=== PATIENT | male | born 1945 | race Caucasian/White ===

== ENCOUNTER → 2019-07-21 | Outpatient (CLI) | payer MEDICARE, OTHER ==
[2019-07-21 11:22] LABS: BUN/CREATININE RATIO 20; CARBON DIOXIDE 24 MMOL/L (21-32); CHLORIDE 103 MMOL/L (98-107); CREATININE SERUM 1.11 MG/DL (0.60-1.30); GFR ESTIMATED > 60; GLUCOSE 95 MG/DL (70-105); POTASSIUM 4.3 MMOL/L (3.6-5.0); SODIUM 139 MMOL/L (135-145)
[2019-07-21 11:23] LABS: ALANINE AMINOTRANSFERASE 19 U/L (0-55); ALBUMIN 4.3 GM/DL (3.2-4.5); ALKALINE PHOSPHATASE 111 U/L (40-136); TOTAL PROTEIN 6.7 GM/DL (6.4-8.2)
[2019-07-21 15:37] LABS: CHOLESTEROL 198 MG/DL (< 200); HDL CHOLESTEROL 79 MG/DL (40-60); TRIGLYCERIDES 58 MG/DL (<150); VLDL CHOLESTEROL 12 MG/DL (5-40)
== END ==
LOC: LAB FS 09:58
PROVIDERS: ATTEND Pediatrics
DX: Z00.00 Encounter for general adult medical examination without abnormal findings (principal); Z12.5 Encounter for screening for malignant neoplasm of prostate
CPT/HCPCS: 36415; 80053; 80061; 84153

== ENCOUNTER 2022-02-02 12:11 | Emergency (ER) | payer MEDICARE, OTHER ==
[~2022-02-02] VITALS: Ht 177.8 cm; Wt 65.8 kg
[2022-02-02 12:28] VITALS: BP 122/79
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
[2022-02-02] MEDS ORDERED: TETANUS,DIPTH,PERTUSS P/F (BOOSTRIX) 0.5 ML VIAL IM ONE (13:00)
== END 2022-02-02 13:05 | disposition home or self-care (01) ==
LOC: EDUNIT# 12:11 → ER FS 12:12
DX: T24.212A Burn of second degree of left thigh, initial encounter (principal); T23.232A Burn of second degree of multiple left fingers (nail), not including thumb, initial encounter; T31.0 Burns involving less than 10% of body surface; S70.02XA Contusion of left hip, initial encounter; S30.810A Abrasion of lower back and pelvis, initial encounter; S40.812A Abrasion of left upper arm, initial encounter; Z23 Encounter for immunization; W28.XXXA Contact with powered lawn mower, initial encounter; Y93.H2 Activity, gardening and landscaping
CPT/HCPCS: 90715; 99284

== ENCOUNTER 2022-10-30 16:29 | Emergency (ER) | payer MEDICARE, OTHER ==
[~2022-10-30] VITALS: Ht 177 cm; Wt 68.0 kg
[2022-10-30 16:52] LABS: BASOPHILS % (AUTO) 1 % (0-10); EOSINOPHILS # (AUTO) 0.4 10^3/uL (0.0-0.3); EOSINOPHILS % (AUTO) 6 % (0-10); HEMATOCRIT 41 % (40-54); LYMPHOCYTES # (AUTO) 1.8 10^3/uL (1.0-4.0); LYMPHOCYTES % (AUTO) 27 % (12-44); MEAN CORPUSCULAR HEMOGLOBIN 34 pg (25-34); MEAN CORPUSCULAR HGB CONC 35 g/dL (32-36); MEAN CORPUSCULAR VOLUME 98 fL (80-99); MEAN PLATELET VOLUME 9.5 fL (9.0-12.2); MONOCYTES # (AUTO) 0.5 10^3/uL (0.0-1.0); MONOCYTES % (AUTO) 8 % (0-12); NEUTROPHILS # (AUTO) 3.7 10^3/uL (1.8-7.8); NEUTROPHILS % (AUTO) 58 % (42-75); PLATELET COUNT 278 10^3/uL (130-400); WHITE BLOOD COUNT 6.5 10^3/uL (4.3-11.0)
--- NOTE | 2022-10-30 16:55 | ED General ---
General Chief Complaint: General Problems/Pain Stated Complaint: LIGHT HEADED,DIZZY,WEAK, HIGH BP, Source of Information: Patient History of Present Illness Date Seen by Provider: Oct 30, 2022 Time Seen by Provider: 16:33 Initial Comments 77-year-old male presenting with complaints of feeling lightheaded and weak. He has noticed his blood pressure has been higher in the last few days. He had gone to urgent care and they advised to come to the emergency department to have blood work and evaluation. Patient denies having any chest pain, change in vision, cough, abdominal pain, nausea, vomiting, diarrhea, change in urine. He was asking about having blood work and going home and having us call with the results. I advised him that we would need to have him stay here in the ER so that we can monitor his blood pressure and treat it if necessary. Timing/Duration: 2-3 Days Severity: Moderate Associated Systoms: No Chest Pain, No Cough, No Diaphoresis, No Fever/Chills, No Headaches, No Loss of Appetite, No Malaise, No Nausea/Vomiting, No Rash, No Seizure, No Shortness of Air, No Syncope; Weakness, Other (feels light headed and weak) Allergies and Home Medications Allergies Coded Allergies: Iodinated Contrast Media (Verified Allergy, Unknown, 02/02/22) Sulfa (Sulfonamide Antibiotics) (Verified Allergy, Unknown, 02/02/22) Patient Home Medication List Home Medication List Reviewed: Yes Review of Systems Review of Systems Constitutional: No chills, No fever; weakness EENTM: no symptoms reported Respiratory: no symptoms reported Cardiovascular: no symptoms reported Gastrointestinal: no symptoms reported Genitourinary: no symptoms reported Musculoskeletal: no symptoms reported Skin: no symptoms reported Psychiatric/Neurological: See HPI Past Lypuufq-Qocvpr-Hwodvx Hx Past Medical History Surgery/Hospitalization HX: Hypertension, Osteoarthritis Physical Exam Vital Signs Vital Signs - First Documented 10/30/22 16:54 Temp 36.7 Pulse 61 Resp 18 B/P (MAP) 170/94 (119) Pulse Ox 100 O2 Delivery Room Air Capillary Refill : Height, Weight, BMI Height: '" Weight: lbs. oz. kg; 20.00 BMI Method: General Appearance: No Apparent Distress, WD/WN HEENT: PERRL/EOMI, Pharynx Normal, Moist Mucous Membranes Neck: Full Range of Motion, Normal Inspection, Non Tender, Supple Respiratory: Chest Non Tender, Lungs Clear, Normal Breath Sounds, No Accessory Muscle Use, No Respiratory Distress Cardiovascular: Regular Rate, Rhythm, No Murmur, Normal Peripheral Pulses Gastrointestinal: Normal Bowel Sounds, No Pulsatile Mass, Non Tender, Soft Extremity: Normal Capillary Refill, Normal Inspection, No Pedal Edema Neurologic/Psychiatric: Alert, Oriented x3, No Motor/Sensory Deficits, 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, 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 Skin: Normal Color, Warm/Dry Progress/Results/Core Measures Suspected Sepsis SIRS Temperature: Pulse: Respiratory Rate: Laboratory Tests 10/30/22 16:45: White Blood Count 6.5 Blood Pressure / Mean: Laboratory Tests 10/30/22 16:45: Creatinine 1.08, INR Comment 1.0, Platelet Count 278, Total Bilirubin 1.2H Results/Orders Lab Results Laboratory Tests Test 10/30/22 16:45 10/30/22 16:51 Range/Units White Blood Count 6.5 4.3-11.0 10^3/uL Red Blood Count 4.13 L 4.30-5.52 10^6/uL Hemoglobin 14.0 13.3-17.7 g/dL Hematocrit 41 40-54 % Mean Corpuscular Volume 98 80-99 fL Mean Corpuscular Hemoglobin 34 25-34 pg Mean Corpuscular Hemoglobin Concent 35 32-36 g/dL Red Cell Distribution Width 13.3 10.0-14.5 % Platelet Count 278 130-400 10^3/uL Mean Platelet Volume 9.5 9.0-12.2 fL Immature Granulocyte % (Auto) 1 % Neutrophils (%) (Auto) 58 42-75 % Lymphocytes (%) (Auto) 27 12-44 % Monocytes (%) (Auto) 8 0-12 % Eosinophils (%) (Auto) 6 0-10 % Basophils (%) (Auto) 1 0-10 % Neutrophils # (Auto) 3.7 1.8-7.8 10^3/uL Lymphocytes # (Auto) 1.8 1.0-4.0 10^3/uL Monocytes # (Auto) 0.5 0.0-1.0 10^3/uL Eosinophils # (Auto) 0.4 H 0.0-0.3 10^3/uL Basophils # (Auto) 0.0 0.0-0.1 10^3/uL Immature Granulocyte # (Auto) 0.0 0.0-0.1 10^3/uL Prothrombin Time 13.2 12.2-14.7 SEC INR Comment 1.0 0.8-1.4 Activated Partial Thromboplast Time 39 H 24-35 SEC Sodium Level 139 135-145 MMOL/L Potassium Level 3.9 3.6-5.0 MMOL/L Chloride Level 104 98-107 MMOL/L Carbon Dioxide Level 25 21-32 MMOL/L Anion Gap 10 5-14 MMOL/L Blood Urea Nitrogen 20 H 7-18 MG/DL Creatinine 1.08 0.60-1.30 MG/DL Estimat Glomerular Filtration Rate 72 BUN/Creatinine Ratio 19 Glucose Level 89 70-105 MG/DL Calcium Level 9.1 8.5-10.1 MG/DL Corrected Calcium 8.8 8.5-10.1 MG/DL Magnesium Level 2.1 1.6-2.4 MG/DL Total Bilirubin 1.2 H 0.1-1.0 MG/DL Aspartate Amino Transf (AST/SGOT) 24 5-34 U/L Alanine Aminotransferase (ALT/SGPT) 29 0-55 U/L Alkaline Phosphatase 85 40-136 U/L Troponin I < 0.30 <0.30 NG/ML Pro-B-Type Natriuretic Peptide 121.6 <450.0 PG/ML Total Protein 6.2 L 6.4-8.2 GM/DL Albumin 4.4 3.2-4.5 GM/DL Lipase 22 8-78 U/L Glucometer 75 70-110 MG/DL My Orders Orders - MAY ARDON MD Cbc With Automated Diff (10/30/22 16:40) Magnesium (10/30/22 16:40) Chest 1 View Ap/Pa Only (10/30/22 16:40) Ekg Tracing (10/30/22 16:40) Comprehensive Metabolic Panel (10/30/22 16:40) Protime With Inr (10/30/22 16:40) Partial Thromboplastin Time (10/30/22 16:40) O2 (10/30/22 16:40) Monitor-Rhythm Ecg Trace Only (10/30/22 16:40) Ed Iv/Invasive Line Start (10/30/22 16:40) Lipase (10/30/22 16:40) Troponin I Fs (10/30/22 16:40) Probnp Fs (10/30/22 16:40) Accucheck Stat ONCE (10/30/22 16:40) Vital Signs/I&O 10/30/22 10/30/22 16:54 18:48 Temp 36.7 Pulse 61 58 Resp 18 18 B/P (MAP) 170/94 (119) 152/90 Pulse Ox 100 O2 Delivery Room Air Capillary Refill : Point of Care Testing Finger Stick Blood Glucose: 75 Progress Note #1: Progress Note Potential life-threatening conditions of hypertensive emergency, myocardial infarction, stroke, dehydration, renal failure, hepatic failure, electrolyte imbalance. Ordered electrocardiogram to evaluate his rate and rhythm. Peripheral IV to draw blood for complete blood count, comprehensive metabolic profile, cardiac enzymes, coagulation factors. Chest x-ray to look for signs of acute abnormality to help account for his elevated blood pressure. As his blood pressure is usually okay but has been higher in the last 2 days since he had eaten foods high in sodium and fat for [employer] will defer adding any additional blood pressure medicine hearing loss is blood pressure or symptoms get worse. I did not want to have his blood pressure dropped too low since he does take lisinopril 5 mg a day at home already. We will monitor his blood pressure and see what it does while he is in the ED as he rests. Progress Note #2: Progress Note His complete blood count did not show elevated white blood cell count or low hemoglobin to indicate signs of infection or anemia. His comprehensive metabolic profile showed no acute significant abnormality with his electrolytes, renal function, hepatic function. His troponin was less than 0.3 and he did not have an elevated proBNP. These would go against him having myocardial infa rction or acute heart damage. On his 1 view chest x-ray my interpretation was no acute infiltrate or acute process in his lungs. On recheck of the patient's blood pressure had come down from the 170s systolic to 150s systolic. I reassured the patient that his test had looked okay we did not see any signs of acute infiltrate, pneumonia, heart failure, heart attack, electrolyte imba tavo. Will have patient take an additional 5 mg of his lisinopril tonight and then starting tomorrow take 10 mg or 2 of his 5 mg pills each day to help with managing his blood pressure. He should monitor his blood pressure at home and keep a log and follow-up with his doctor. Give his doctor call and see if they wanted to do anything different with his blood pressure or any additional testing. Patient states he has an appointment to see cardiology next week and he might wait talk to them. Counseled on follow-up and return precautions and advised if he had worsening symptoms or new problems to come back or be seen sooner. ECG Initial ECG Impression Date: Oct 30, 2022 Initial ECG Impression Time: 16:50 Initial ECG Rate: 58 Initial ECG Rhythm: S.Dwayne Initial ECG Comparisson: No Previous ECG Available Comment On my initial interpretation his electrocardiogram shows sinus bradycardia with a heart rate of 58 bpm. He has a right axis deviation with a right bundle branch block. He has no acute ST elevation. His TN interval is 189 ms. QT interval 423 ms with a QTc interval of 419 ms. He has no prior tracings available for comparison. Diagnostic Imaging Diagonstic Imaging: Xray Plain Films/CT/US/NM/MRI: chest Comments [facility], [place] NAME: CAROLINA GUTIÉRREZ [facility] REC#: [id number] PT STATUS: REG ER : 1945 PHYSICIAN: MAY ARDON MD ADMIT DATE: 10/30/22/ER FS Signed Date of Exam:10/30/22 CHEST 1 VIEW AP/PA ONLY EXAMINATION: Chest 1 view HISTORY: High blood pressure. COMPARISON: None available. FINDINGS: The lungs are clear without edema or pneumonia. No pleural effusion or pneumothorax. Heart size is normal. IMPRESSION: 1. Clear lungs. Dictated by: Dictated on workstation # [id number] Dict: 10/30/221657 Trans: 10/30/221700 [id number] [id number] Interpreted by: GISELA DE LEÓN MD Electronically signed by: GISELA DE LEÓN MD 10/30/221700 Reviewed: Reviewed by Me (I reviewed the radiologist report [id number]) Departure Impression Primary Impression: Labile hypertension Disposition: 01 HOME, SELF-CARE Condition: Stable Departure-Patient Inst. Decision time for Depature: 18:42 Referrals: DOTTIE ALVARENGA MD (PCP) Primary Care Physician GISELA BUENROSTRO MD (Family) Primary Care Physician Patient Instructions: High Blood Pressure ED, DASH Diet Add. Discharge Instructions: Take lisinopril 5 mg tonight when you get home. Starting tomorrow morning take 2 of your Lisinopril 5 mg pills for a total dose of 10 mg daily until you can follow up with Dr. Alvarenga or the Mirror Department Supervisor in [place]. 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 All discharge instructions reviewed with patient and/or family. Voiced understanding. MAY ARDON MD Oct 30, 2022 16:55
--- NOTE | 2022-10-30 17:00 | Diagnostic Imaging Report ---
EXAMINATION: Chest 1 view HISTORY: High blood pressure. COMPARISON: None available. FINDINGS: The lungs are clear without edema or pneumonia. No pleural effusion or pneumothorax. Heart size is normal. IMPRESSION: 1. Clear lungs. Dictated by: Dictated on workstation # [id number]
[2022-10-30 17:09] LABS: PROTHROMBIN TIME PATIENT 13.2 SEC (12.2-14.7)
[2022-10-30 17:26] LABS: BILIRUBIN,TOTAL 1.2 MG/DL (0.1-1.0); CALCIUM 9.1 MG/DL (8.5-10.1); CREATININE SERUM 1.08 MG/DL (0.60-1.30); MAGNESIUM 2.1 MG/DL (1.6-2.4); POTASSIUM 3.9 MMOL/L (3.6-5.0)
[2022-10-30 17:27] LABS: ALBUMIN 4.4 GM/DL (3.2-4.5); TOTAL PROTEIN 6.2 GM/DL (6.4-8.2)
[2022-10-30 18:48] VITALS: BP 152/90
== END 2022-10-30 18:48 | disposition home or self-care (01) ==
LOC: EDUNIT# 16:29 → ER FS 16:32
DX: I10 Essential (primary) hypertension (principal); I45.10 Unspecified right bundle-branch block
CPT/HCPCS: 36415; 71045; 80053; 82947; 83690; 83735; 83880; 84484; 85025; 85610; 85730; 93005